=== PATIENT | female | born 1970 | race Caucasian/White ===

== ENCOUNTER 2022-11-17 10:41 | Emergency (ER) | payer MEDICAID ==
[~2022-11-17] VITALS: Ht 175.3 cm; Wt 100.0 kg
[~2022-11-17 10:41] MED LIST: CLIN150C2 PO; CLIN300C65 PO; HYDR1TAB PO; IBUP-1051 PO; IBUP-1984 PO; NORCO10T PO
[2022-11-17 10:50] VITALS: BP 148/52; PULSE 100; RESP 18; TEMP 98; O2SAT 96
[2022-11-17] MEDS ORDERED: predniSONE 20 mg tablet PO ONE (14:35)
[2022-11-17] MEDS ORDERED: PRED20TA PO (14:37)
[2022-11-17] MEDS ORDERED: IBUP-1984 PO (14:37)
[2022-11-17] MEDS ORDERED: prednisone 10mg tablet PO ONE (14:40)
== END 2022-11-17 16:00 | disposition left against medical advice (07) ==
LOC: ER 10:41
DX: M25.562 Pain in left knee (principal); Z56.0 Unemployment, unspecified; Z79.899 Other long term (current) drug therapy
CPT/HCPCS: 73564; 99283